=== PATIENT | male | born 1955 | race Caucasian/White ===

== ENCOUNTER → 2017-07-21 | Outpatient (CLI) | payer OTHER | LOC: MRI 13:30 → RAD 13:30 | DX: J32.0 Chronic maxillary sinusitis (principal) | CPT/HCPCS: 70551 ==

== ENCOUNTER 2017-08-17 08:26 | Observation (INO) | payer OTHER, MEDICARE ==
[~2017-08-17] VITALS: Ht 172.7 cm; Wt 87.7 kg
[2017-08-17 09:22] LABS: BASOPHIL (%) 0.8 % (0-1); BASOPHIL COUNT 0.1 K/uL (0-0.1); EOSINOPHIL (%) 0.8 % (0-5); EOSINOPHIL COUNT 0.1 K/uL (0-0.3); HEMATOCRIT 42.7 % (38.0-50.0); HEMOGLOBIN 14.8 G/DL (12.5-16.6); IMMATURE GRANULOCYTE (%) 0.2 % (0.0-0.7); LYMPHOCYTE (%) 24.5 % (15-42); LYMPHOCYTE COUNT 1.5 K/uL (1.0-2.8); MCH 32.2 PG (29.0-34.0); MCHC 34.7 G/DL (30.0-36.0); MCV 92.8 FL (86-99); MONOCYTE (%) 8.7 % (3-12); MONOCYTE COUNT 0.5 K/uL (0-0.8); NEUTROPHIL COUNT 3.9 K/uL (1.8-6.4); PLATELET COUNT 192 K/uL (156-360); RBC DIS.WIDTH-SD 44.4 % (39-53)
[2017-08-17 09:30] LABS: CHLORIDE 110 mEq/L (99-109); POTASSIUM 4.5 mEq/L (3.7-5.4); SODIUM 141 mEq/L (136-147)
[2017-08-17 09:32] LABS: GLUCOSE 89 mg/dL (70-99)
[2017-08-17 09:36] LABS: CREATININE 1.1 mg/dL (0.6-1.3); GFR ESTIMATE (CALCULATED) > 59 mL/min/ (58.99-99999)
[2017-08-17 09:37] LABS: UREA NITROGEN (BUN) 12 mg/dL (9-23)
[2017-08-17 10:02] LABS: TROP-I INTERPRETATION NEGATIVE; TROPONIN-I 0.01 ng/mL (0.0-0.30)
[2017-08-17] MEDS ORDERED: COLACE100 MG PO (10:34)
[2017-08-17] MEDS ORDERED: ABILIFY20 MG PO (10:34)
[2017-08-17] MEDS ORDERED: MIRTAZAPINE15 MG PO (10:34)
[2017-08-17] MEDS ORDERED: VITAMIN D32000 UNI1 PO (10:35)
[2017-08-17] MEDS ORDERED: SIMVASTATIN40 MG PO (10:35)
[2017-08-17] MEDS ORDERED: LOSARTAN POTAS100 MG PO (10:36)
[2017-08-17] MEDS ORDERED: RITALIN20 MG PO (10:37)
[2017-08-17] MEDS ORDERED: EFFEXOR XR150 MG PO (10:38)
[2017-08-17 12:44] VITALS: BP 107/62
[2017-08-17 14:42] VITALS: BP 111/68
[2017-08-17 16:22] LABS: TROP-I INTERPRETATION NEGATIVE; TROPONIN-I 0.01 ng/mL (0.0-0.30)
[2017-08-17 19:37] VITALS: BP 113/73
[2017-08-17 22:27] LABS: TROP-I INTERPRETATION NEGATIVE; TROPONIN-I 0.02 ng/mL (0.0-0.30)
[2017-08-18 00:16] VITALS: BP 123/59
[2017-08-18 04:08] VITALS: BP 134/72
[2017-08-18 04:19] LABS: APPEARANCE CLEAR ((CLEAR)); BILIRUBIN NEGATIVE; BLOOD NEGATIVE; COLOR YELLOW ((YELLOW)); GLUCOSE (STRIP) NEGATIVE; KETONES NEGATIVE; LEUKOCYTES NEGATIVE; NITRITE NEGATIVE; PROTEIN (STRIP) NEGATIVE; SPECIFIC GRAVITY 1.013 (1.000-1.030); UCUL ADDED? NO; UROBILINOGEN 0.2 MG/DL (0.2-1.0)
[2017-08-18 06:34] VITALS: BP 100/61
[2017-08-18 11:45] VITALS: BP 127/62
[2017-08-18] MEDS ORDERED: LO-DOSE ASPIRIN81 M1 PO (14:21)
[2017-08-18 15:38] VITALS: BP 109/68
== END 2017-08-18 18:20 ==
LOC: EME 08:26 → EDOF 10:49 → 4SOUTH 10:49 → ENRESERV 10:52 → 4SOUTH 12:29
PROVIDERS: Emergency Medicine; Internal Medicine
PROC: B246ZZZ Ultrasonography of Right and Left Heart (ICD-10-PCS; principal; 2017-08-17)
DX: R55 Syncope and collapse (principal); R94.31 Abnormal electrocardiogram [ECG] [EKG]; I10 Essential (primary) hypertension; F20.0 Paranoid schizophrenia; I71.2 Thoracic aortic aneurysm, without rupture; I70.0 Atherosclerosis of aorta; I08.0 Rheumatic disorders of both mitral and aortic valves; M25.522 Pain in left elbow; R07.89 Other chest pain; Z87.891 Personal history of nicotine dependence; R35.0 Frequency of micturition; R30.0 Dysuria; J02.9 Acute pharyngitis, unspecified
CPT/HCPCS: 70450; 71045; 73080; 80048; 81003; 83880; 84484; 85025; 87651 90; 93005; 93306; 99281; 99284; G0378; J1650; J7030